=== PATIENT | male | born 1960 | race Asian ===

== ENCOUNTER → 2020-09-29 | Outpatient (CLI) | payer OTHER ==
[~2020-09-29] MED LIST: PROTONIX40 MG PO
[2020-09-29 10:55] LABS: HEMOGLOBIN 14.6 gm/dl (14.0-17.5); RED BLOOD COUNT 4.93 M/UL (4.20-5.50); WHITE BLOOD COUNT 4.8 K/UL (4.5-11.0)
[2020-09-29 11:24] LABS: BUN/CREATININE RATIO 18 (0-10); GAMMA GLUTAMYL TRANSPEPTIDASE 235 U/L (7-64)
== END ==
LOC: LBRF 08:15 → MO 08:15
PROVIDERS: Internal Medicine Cardiovascular Disease
DX: I10 Essential (primary) hypertension (principal); R07.9 Chest pain, unspecified
CPT/HCPCS: 80053; 80061; 82977; 83036; 84153; 85025

== ENCOUNTER → 2020-11-13 | Outpatient (CLI) | payer OTHER | LOC: HEART 5 09-29 07:30 | DX: R07.9 Chest pain, unspecified (principal); I07.1 Rheumatic tricuspid insufficiency | CPT/HCPCS: 78452; 93306; A9502; J2785 ==

== ENCOUNTER 2021-08-19 11:32 | Emergency (ER) | payer OTHER ==
[~2021-08-19] VITALS: Ht 180.3 cm; Wt 86.2 kg
[2021-08-19 12:06] LABS: HEMOGLOBIN 13.8 gm/dl (14.0-17.5); RED BLOOD COUNT 4.7 M/UL (4.20-5.50); WHITE BLOOD COUNT 6.2 K/UL (4.5-11.0)
[2021-08-19 12:27] LABS: BUN/CREATININE RATIO 17 (0-10)
== END 2021-08-19 15:10 | disposition home or self-care (01) ==
LOC: ER1 11:32
PROVIDERS: Emergency Medicine
DX: R42 Dizziness and giddiness (principal); R11.0 Nausea
CPT/HCPCS: 70551; 71045; 80053; 80061; 80076; 82550; 82553; 83880; 84484; 85025; 93005; 99284; J2405; Q9967